=== PATIENT | female | born 1940 | race Caucasian/White ===

== ENCOUNTER 2019-02-02 03:31 | Emergency (ER) | payer MEDICARE, BC ==
[~2019-02-02] VITALS: Ht 162.6 cm; Wt 72.7 kg
[2019-02-02] MEDS ORDERED: LIDOcaine 1% 30ml preserv. free vial IJ ONE (03:55)
[2019-02-02] MEDS ORDERED: etomidate 2mg/ml inj. IV ONE (03:55)
[2019-02-02] MEDS ORDERED: fentaNYL/PF 50MCG/1 ML 2ML syringe IV ONE (03:55)
[2019-02-02] MEDS ORDERED: ondansetron/PF 4mg/2ml inj IV ONE ×2 (03:55→05:25)
[2019-02-02] MEDS ORDERED: ONDA4TAB6 PO (03:58)
[2019-02-02] MEDS ORDERED: HYDR-3965 PO (03:59)
--- NOTE | 2019-02-02 04:55 | NUR ---
MEDICATION SCANNER IN ROOM WOULD NOT WORK. ETOMIDATE DOSE VERIFIED WITH LUCIUS WRIGHT BEFORE ADMINISTRATION.
--- NOTE | 2019-02-02 05:12 | NUR ---
FRACTURE REDUCTION CONFIRMED WITH XRAY
[2019-02-02] MEDS ORDERED: HYDROcodone/acetaminophen 10/325mg tab PO ONE (05:25)
--- NOTE | 2019-02-02 05:35 | NUR ---
[facility] CONTACTED FOR PT TRANSPORT BACK TO [facility].
--- NOTE | 2019-02-02 05:46 | NUR ---
CALLED REPORT TO [facility] AND SPOKE WITH GADIEL SHIRLEY. SHE STATES RN'S DO NOT TAKE REPORT THE [facility] SUPERVISOR'S TAKE THE REPORT. REPORT GIVEN AND SHE VERBALIZED UNDERSTANDING OF THE PT DISCHARGE INSTRUCTIONS AND THE PT PRESCRIPTIONS. SHE HAD NO FURTHER QUESTIONS. SHE CONFIRMED PT RETURN TO FACILITY VIA [facility].
[2019-02-02 06:23] VITALS: BP 99/42
== END 2019-02-02 06:45 | disposition home or self-care (01) ==
LOC: ER 03:32
DX: S52.592A Other fractures of lower end of left radius, initial encounter for closed fracture (principal); S52.692A Other fracture of lower end of left ulna, initial encounter for closed fracture; F03.90 Unspecified dementia, unspecified severity, without behavioral disturbance, psychotic disturbance, mood disturbance, and anxiety; I11.0 Hypertensive heart disease with heart failure; I50.9 Heart failure, unspecified; Z79.899 Other long term (current) drug therapy; W18.39XA Other fall on same level, initial encounter; Y93.89 Activity, other specified; Y92.89 Other specified places as the place of occurrence of the external cause; Y99.8 Other external cause status
CPT/HCPCS: 25605; 73100; 73120; 94760; 99152; 99153; 99285; J2001; J2405; J3010

== ENCOUNTER 2019-05-20 13:40 | Emergency (ER) | payer MEDICARE, BC ==
[~2019-05-20] VITALS: Ht 170.2 cm; Wt 86.0 kg
[~2019-05-20 13:40] MED LIST: ONDA4TAB6 PO
[2019-05-20 14:49] LABS: ALANINE AMINOTRANSFERASE 36 U/L (12-78); ALBUMIN 3.2 G/DL (3.4-5.0); ALBUMIN/GLOBULIN RATIO 0.7 (1.1-1.5); ALKALINE PHOSPHATASE 101 IU/L (46-116); ANION GAP 9 (8-16); ASPARTATE AMINO TRANSFERASE 20 U/L (10-37); BILIRUBIN,TOTAL 0.7 MG/DL (0.1-1.0); BLOOD UREA NITROGEN 16 MG/DL (7-18); BUN/CREATININE RATIO 15.5 (6.6-38.0); CALCIUM 8.9 MG/DL (8.5-10.1); CHLORIDE 101 MMOL/L (99-107); CREATININE 1.03 MG/DL (0.40-0.90); GLUCOSE 176 MG/DL (70-104); POTASSIUM 3.9 MMOL/L (3.5-5.1); SODIUM 140 MMOL/L (135-145); TOTAL CARBON DIOXIDE 30.5 MMOL/L (24-32); eGFR 52 ML/MIN
[2019-05-20 15:33] LABS: BASOPHILS # (AUTO) 0.1 X10'3 (0-0.2); BASOPHILS % (AUTO) 0.8 % (0-1); EOSINOPHILS # (AUTO) 0.1 X10'3 (0-0.9); EOSINOPHILS % (AUTO) 0.5 % (0-6); HEMATOCRIT 33.7 % (35.0-45.0); HEMOGLOBIN 11.1 g/dl (12.0-16.0); LYMPHOCYTES # (AUTO) 1.5 X10'3 (1.1-4.8); LYMPHOCYTES % (AUTO) 10.5 % (21-51); MEAN CORPUSCULAR HEMOGLOBIN 27.3 PG (27.0-31.0); MEAN CORPUSCULAR HGB CONC 32.9 g/dL (33.0-36.5); MEAN CORPUSCULAR VOLUME 83.1 FL (78-98); MONOCYTES # (AUTO) 1.6 X10'3 (0-0.9); MONOCYTES % (AUTO) 11.5 % (2-12); NEUTROPHILS # (AUTO) 10.9 X10'3 (1.8-7.7); NEUTROPHILS % (AUTO) 76.7 % (42-75); PLATELET COUNT 312 X10'3 (140-440); RED BLOOD COUNT 4.06 X10'6 (4.20-5.60); RED CELL DISTRIBUTION WIDTH 14.3 % (11.5-14.5); WHITE BLOOD COUNT 14.2 X10'3 (4.5-11.0)
[2019-05-20 16:07] VITALS: BP_DIAS 64
[2019-05-20 18:47] VITALS: BP_SYST 127
== END 2019-05-20 18:49 | disposition home or self-care (01) ==
LOC: ER 13:41
DX: F03.90 Unspecified dementia, unspecified severity, without behavioral disturbance, psychotic disturbance, mood disturbance, and anxiety (principal); I11.0 Hypertensive heart disease with heart failure; I50.9 Heart failure, unspecified; Z79.899 Other long term (current) drug therapy
CPT/HCPCS: 36415; 71045; 80053; 84484; 85025; 93005; 99284

== ENCOUNTER 2021-04-30 06:31 | Emergency (ER) | payer MEDICARE, BC ==
[~2021-04-30] VITALS: Ht 149.9 cm; Wt 75.0 kg
[2021-04-30] MEDS ORDERED: bacitracin 15gm ointment TP ONE (07:00)
[2021-04-30] MEDS ORDERED: TETanus/Pertussis (Acell)/Diphther VAC/PF (Tdap-Adult) 0.5ml syringe IMVAC ONE (07:00)
[2021-04-30 09:23] VITALS: BP 108/59
== END 2021-04-30 11:19 | disposition home or self-care (01) ==
LOC: ER 06:31
DX: S51.811A Laceration without foreign body of right forearm, initial encounter (principal); S00.03XA Contusion of scalp, initial encounter; S00.83XA Contusion of other part of head, initial encounter; S06.0X0A Concussion without loss of consciousness, initial encounter; I11.0 Hypertensive heart disease with heart failure; I50.9 Heart failure, unspecified; Z72.89 Other problems related to lifestyle; Z79.899 Other long term (current) drug therapy; Z20.3 Contact with and (suspected) exposure to rabies; W06.XXXA Fall from bed, initial encounter; Y93.89 Activity, other specified; Y92.89 Other specified places as the place of occurrence of the external cause; Y99.8 Other external cause status
CPT/HCPCS: 70450; 70486; 72125; 90471; 90715; 99285